=== PATIENT | female | born 1945 | race Caucasian/White ===

== ENCOUNTER → 2016-10-21 | Outpatient (REF) | payer MEDICARE, BC | LOC: M LAB REF 10:45 | PROVIDERS: ATTEND Internal Medicine | DX: N39.0 Urinary tract infection, site not specified (principal) ==

== ENCOUNTER → 2018-12-31 | Outpatient (REF) | payer MEDICARE, BC | LOC: M LAB REF 09:53 | PROVIDERS: ATTEND Physician Assistant | DX: R05 Cough (principal) ==

== ENCOUNTER → 2019-12-21 | Outpatient (CLI) | payer MEDICARE, BC ==
--- NOTE | 2019-12-21 14:03 | REPMRS ---
Patient History The patient states she has not had a clinical breast exam in over a year. Family history of breast cancer at age 50 or over in paternal grandmother. Digital Woman Screen Mammo: December 21, 2019 - Exam #: [id number] Bilateral CC and MLO view(s) were taken. Technologist: Jerri Granger, Technologist Prior study comparison: December 25, 2015, digital woman screen mammo performed at [facility]. September 16, 2014, digital woman screen mammo performed at [facility]. April 16, 2011, digital woman screen mammo performed at [facility]. FINDINGS: There are scattered fibroglandular densities. The Volpara volumetric breast density category is:B. There has been no change in the appearance of the mammogram from the prior studies. There is a mild amount of scattered fibroglandular density which is fairly symmetric. There is no interval development of dominant mass, architectural distortion, or grouped microcalcification suggestive of malignancy. 3-D tomosynthesis shows no additional findings. Assessment: BI-RADS/ACR category 1 mammogram. Negative Mammogram. Recommendation Routine screening mammogram of both breasts in 1 year (for women over age 40). This patient's Lifetime Breast Cancer Risk is estimated at 2.6 %. This mammogram was interpreted with the aid of an FDA-approved computer-aided dectection system. Electronically Signed By: Tushar Thomas MD 12/21/19 0992
== END ==
LOC: M WHC 11:18
PROVIDERS: ATTEND Internal Medicine
DX: Z12.31 Encounter for screening mammogram for malignant neoplasm of breast (principal); Z80.3 Family history of malignant neoplasm of breast

== ENCOUNTER → 2020-05-26 | Outpatient (REF) | payer MEDICARE | LOC: M LAB REF 16:21 | PROVIDERS: ATTEND Family Medicine | DX: N39.0 Urinary tract infection, site not specified (principal) ==

== ENCOUNTER → 2021-05-28 | Outpatient (REF) | payer MEDICARE | LOC: M LAB REF 16:13 | PROVIDERS: ATTEND Internal Medicine | DX: I10 Essential (primary) hypertension (principal) ==

== ENCOUNTER → 2021-07-16 | Outpatient (REF) | payer MEDICARE ==
[2021-07-16 17:39] LABS: APPEARANCE, URINE HAZY (CLEAR); BACTERIA, URINE AUTO NEGATIVE (NEGATIVE); BILIRUBIN, URINE AUTO NEGATIVE (NEGATIVE); BLOOD, URINE BLOOD 1+ (NEGATIVE); COLOR, URINE YELLOW (YELLOW); GLUCOSE, URINE (UA) AUTO 1+ mg/dL (NEGATIVE); KETONE, URINE AUTO NEGATIVE (NEGATIVE); LEUKOCYTE ESTERASE, URINE AUTO TRACE (NEGATIVE); NITRITE, URINE AUTO NEGATIVE (NEGATIVE); PROTEIN, URINE AUTO NEGATIVE (NEGATIVE); RBC, URINE AUTO 1 /HPF (0-3); SQUAMOUS EPITHELIAL CELL UR AU 1 /HPF (0-6); UROBILINOGEN, URINE AUTO 0.2 mg/dL (0.0-2.0); WBC, URINE AUTO 5 /HPF (0-3)
== END ==
LOC: M SMT 16:39
PROVIDERS: ATTEND Nurse Practitioner Women's Health
DX: N39.0 Urinary tract infection, site not specified (principal)

== ENCOUNTER → 2021-07-27 | Outpatient (CLI) | payer MEDICARE ==
[2021-07-27 17:09] LABS: BLOOD UREA NITROGEN 21 MG/DL (7-18); CARBON DIOXIDE LEVEL 25 MEQ/L (21-32); CHLORIDE LEVEL 101 MEQ/L (98-107); CREATININE FOR GFR 0.87 MG/DL (0.55-1.30); GLOMERULAR FILTRATION RATE > 60.0 (>39); GLUCOSE, FASTING 153 MG/DL (70-100); POTASSIUM SERUM 4.4 MEQ/L (3.5-5.1); SODIUM LEVEL 135 MEQ/L (136-145)
== END ==
LOC: M PLALAB 15:46
PROVIDERS: ATTEND Specialist
DX: N39.0 Urinary tract infection, site not specified (principal)

== ENCOUNTER → 2021-08-04 | Outpatient (CLI) | payer MEDICARE ==
[~2021-08-04] MED LIST: ISOVUE-370 76% 100ML VIAL As Ordered ONE
== END ==
LOC: M RAD 11:59
PROVIDERS: ATTEND Specialist
DX: N39.0 Urinary tract infection, site not specified (principal)
CPT/HCPCS: 74178; Q9967

== ENCOUNTER → 2021-08-28 | Outpatient (CLI) | payer MEDICARE ==
[~2021-08-28] MED LIST changes: +AMLO1TAB24; +BD I; +INSUNSD; +INSURSD; -ISOVUE-370 76% 100ML VIAL As Ordered ONE; +METO1TAB32; +OLME20TA2; +PRAV10TA4; +PREDOPD; +SPIR-10
[2021-08-28 18:30] LABS: HEMATOCRIT 35.2 % (36.0-47.0); HEMOGLOBIN 11.8 g/dl (12.0-15.5); MEAN CORPUSCULAR HEMOGLOBIN 30.6 pg (27.0-33.0); MEAN CORPUSCULAR HGB CONC 33.5 g/dl (32.0-36.5); MEAN CORPUSCULAR VOLUME 91.2 fl (80.0-96.0); PLATELET COUNT, AUTOMATED 272 10^3/uL (150-450); RED BLOOD COUNT 3.86 10^6/uL (4.00-5.40)
[2021-08-28 18:52] LABS: PARTIAL THROMBOPLASTIN TIME 29.7 SECONDS (25.9-37.0)
[2021-08-28 18:59] LABS: INR 1.02; PROTHROMBIN TIME 13.8 SECONDS (12.7-14.5)
[2021-08-28 19:00] LABS: BLOOD UREA NITROGEN 21 MG/DL (7-18); CALCIUM LEVEL 9.2 MG/DL (8.8-10.2); CARBON DIOXIDE LEVEL 29 MEQ/L (21-32); CHLORIDE LEVEL 103 MEQ/L (98-107); CREATININE FOR GFR 0.88 MG/DL (0.55-1.30); GLOMERULAR FILTRATION RATE > 60.0 (>39); GLUCOSE, FASTING 263 MG/DL (70-100); POTASSIUM SERUM 4.6 MEQ/L (3.5-5.1); SODIUM LEVEL 135 MEQ/L (136-145)
== END ==
LOC: M PLALAB 14:33
PROVIDERS: ATTEND Nurse Practitioner Women's Health
DX: Z01.818 Encounter for other preprocedural examination (principal); N32.89 Other specified disorders of bladder

== ENCOUNTER → 2021-08-31 | Outpatient (REF) | payer MEDICARE ==
[2021-08-31 18:05] LABS: APPEARANCE, URINE HAZY (CLEAR); BACTERIA, URINE AUTO 2+ (NEGATIVE); BILIRUBIN, URINE AUTO NEGATIVE (NEGATIVE); BLOOD, URINE BLOOD NEGATIVE (NEGATIVE); COLOR, URINE YELLOW (YELLOW); GLUCOSE, URINE (UA) AUTO 2+ mg/dL (NEGATIVE); KETONE, URINE AUTO NEGATIVE (NEGATIVE); LEUKOCYTE ESTERASE, URINE AUTO 1+ (NEGATIVE); NITRITE, URINE AUTO NEGATIVE (NEGATIVE); PROTEIN, URINE AUTO NEGATIVE (NEGATIVE); RBC, URINE AUTO 1 /HPF (0-3); SPECIFIC GRAVITY URINE AUTO 1.009 (1.002-1.035); SQUAMOUS EPITHELIAL CELL UR AU 1 /HPF (0-6); UROBILINOGEN, URINE AUTO 0.2 mg/dL (0.0-2.0); WBC, URINE AUTO 19 /HPF (0-3)
== END ==
LOC: M SMT 16:49
PROVIDERS: ATTEND Nurse Practitioner Women's Health
DX: Z01.818 Encounter for other preprocedural examination (principal); N32.89 Other specified disorders of bladder

== ENCOUNTER → 2021-09-02 | Outpatient (CLI) | payer MEDICARE | LOC: M LABSMTC 09:52 | PROVIDERS: ATTEND Anesthesiology | DX: Z01.812 Encounter for preprocedural laboratory examination (principal); Z20.822 Contact with and (suspected) exposure to COVID-19 ==

== ENCOUNTER 2021-09-07 07:38 | Day surgery (SDC) | payer MEDICARE ==
[~2021-09-07] VITALS: Ht 157.5 cm; Wt 53.6 kg
[~2021-09-07 07:38] MED LIST changes: +ceFAZolin SOD 2 GM in IV 1 EA IV ONE
[2021-09-07] MEDS ORDERED: LR 1,000 ML IV SCH ×2 (07:45→10:05)
[2021-09-07] MEDS ORDERED: CIPR-249 PO (08:00)
[2021-09-07] MEDS ORDERED: dexameTHASONE 4 MG/ML 1ML VIAL (J1100 PER 1MG) As Ordered ONE (08:59)
[2021-09-07] MEDS ORDERED: ONDANSETRON 4MG 2ML VIAL As Ordered ONE ×2 (08:59→12:34)
[2021-09-07] MEDS ORDERED: propofoL 200 MG/20 ML VIAL As Ordered ONE (08:59)
[2021-09-07] MEDS ORDERED: LIDOCAINE 2% 100MG/5ML SDV (FOR ANES.) As Ordered ONE (08:59)
[2021-09-07] MEDS ORDERED: ROCURONIUM BROMIDE 50 MG/5 ML VIAL As Ordered ONE (08:59)
[2021-09-07] MEDS ORDERED: fentaNYL 250 MCG/5 ML INJECTION As Ordered ONE (09:00)
[2021-09-07] MEDS ORDERED: MIDAZOLAM INJ 2MG/2ML VIAL (J2250 PER 1MG) As Ordered ONE (09:00)
[2021-09-07] MEDS ORDERED: SEVOFLURANE INHAL SOLN 250 ML BTL As Ordered ONE (09:08)
[2021-09-07] MEDS ORDERED: LACRILUBE (AKWA TEARS) OPHTH OINT 3.5 GM As Ordered ONE (09:36)
[2021-09-07] MEDS ORDERED: ePHEDrine SULFATE 25 MG/5 ML(5MG/ML) SYRINGE As Ordered ONE (09:48)
[2021-09-07] MEDS ORDERED: ACETAMINOPHEN 1000MG 100ML IV BTL (OFIRMEV) (J0131 PER 10MG) As Ordered ONE (09:58)
[2021-09-07] MEDS ORDERED: SUGAMMADEX SODIUM 500 MG/5 ML VIAL (BRIDION) As Ordered ONE (10:00)
[2021-09-07] MEDS ORDERED: fentaNYL 100 MCG/2 ML INJECTION IV PRN (10:05)
[2021-09-07] MEDS ORDERED: ONDANSETRON 4MG 2ML VIAL IV PRN ×2 (10:05→12:35)
[2021-09-07] MEDS ORDERED: PERCOCET 5MG/325MG TAB PO PRN (10:05)
[2021-09-07] MEDS ORDERED: MEPERIDINE INJ 25 MG/ML VIAL (J2175) IV PRN (10:05)
[2021-09-07] MEDS ORDERED: MORPHINE 2 MG/ML 1ML VIAL IV PRN (10:05)
[2021-09-07 12:40] VITALS: BP 155/67
== END 2021-09-07 12:49 | disposition home or self-care (01) ==
LOC: M SDC 07:38
PROVIDERS: ATTEND Urology
DX: N32.9 Bladder disorder, unspecified (principal); I10 Essential (primary) hypertension; E10.9 Type 1 diabetes mellitus without complications; E78.5 Hyperlipidemia, unspecified; Z79.4 Long term (current) use of insulin; Z79.899 Other long term (current) drug therapy; Z79.82 Long term (current) use of aspirin
CPT/HCPCS: 52204; 88305; J0131; J0690; J1100; J2250; J2405; J3010

== ENCOUNTER → 2022-11-30 | Outpatient (REF) | payer MEDICARE ==
[~2022-11-30] MED LIST changes: +CIPR-249 PO; -ceFAZolin SOD 2 GM in IV 1 EA IV ONE
== END ==
LOC: M LAB REF 16:36
PROVIDERS: ATTEND Nurse Practitioner Family
DX: R30.0 Dysuria (principal)

== ENCOUNTER → 2023-03-08 | Outpatient (REF) | payer MEDICARE ==
[~2023-03-08] MED LIST changes: +INSU100V19; -INSURSD; -OLME20TA2; +OLME20TA50
== END ==
LOC: M LAB REF 13:23
PROVIDERS: ATTEND Nurse Practitioner Family
DX: R19.7 Diarrhea, unspecified (principal)

== ENCOUNTER → 2023-03-10 | Outpatient (REF) | payer MEDICARE ==
[2023-03-10 20:03] LABS: RSV AMPLIFICATION NEGATIVE (NEGATIVE)
== END ==
LOC: M LAB REF 16:11
PROVIDERS: ATTEND Nurse Practitioner Family
DX: R06.02 Shortness of breath (principal)

== ENCOUNTER → 2023-03-23 | Outpatient (CLI) | payer MEDICARE | LOC: M PLAIMG 11:34 | PROVIDERS: ATTEND Nurse Practitioner Family | DX: R06.02 Shortness of breath (principal) ==

== ENCOUNTER → 2023-05-02 | Outpatient (REF) | payer MEDICARE | LOC: M LAB REF 17:08 | PROVIDERS: ATTEND Internal Medicine | DX: N39.0 Urinary tract infection, site not specified (principal); B96.89 Other specified bacterial agents as the cause of diseases classified elsewhere ==

== ENCOUNTER → 2023-09-21 | Day surgery (SDC) | payer MEDICARE ==
[~2023-09-21] VITALS: Ht 157.5 cm; Wt 50.6 kg
[~2023-09-21] MED LIST changes: +INSULADS INJ; +LIDOCAINE 2% 100MG/5ML SDV (FOR ANES.) As Ordered ONE; -OLME20TA50; +OLME20TA50 PO; -PRAV10TA4; +PRAV10TA4 PO; -SPIR-10; +SPIR-10 PO; +fentaNYL 100 MCG/2 ML INJECTION As Ordered ONE; +propofoL 500 MG/50 ML VIAL As Ordered ONE
[2023-09-21] MEDS: NS 1,000 ML IV ONE (07:16)
[2023-09-21 08:35] VITALS: BP 193/81; O2SAT 98
== END | disposition home or self-care (01) ==
LOC: M OPP 06:44
PROVIDERS: ATTEND Internal Medicine Gastroenterology
DX: Z12.11 Encounter for screening for malignant neoplasm of colon (principal); Z83.719 Family history of colon polyps, unspecified; D12.2 Benign neoplasm of ascending colon; K63.5 Polyp of colon; K64.0 First degree hemorrhoids; K57.30 Diverticulosis of large intestine without perforation or abscess without bleeding; K44.9 Diaphragmatic hernia without obstruction or gangrene; K31.89 Other diseases of stomach and duodenum; K22.89 Other specified disease of esophagus; R12 Heartburn; R10.816 Epigastric abdominal tenderness; E11.9 Type 2 diabetes mellitus without complications; Z79.02 Long term (current) use of antithrombotics/antiplatelets; Z79.899 Other long term (current) drug therapy
CPT/HCPCS: 43239; 45380; 45385; 88305; J3010

== ENCOUNTER → 2023-11-29 | Outpatient (CLI) | payer MEDICARE ==
[~2023-11-29] MED LIST changes: -LIDOCAINE 2% 100MG/5ML SDV (FOR ANES.) As Ordered ONE; -fentaNYL 100 MCG/2 ML INJECTION As Ordered ONE; -propofoL 500 MG/50 ML VIAL As Ordered ONE
== END ==
LOC: M WHC 11:37
PROVIDERS: ATTEND Internal Medicine
DX: Z12.31 Encounter for screening mammogram for malignant neoplasm of breast (principal); R92.323 Mammographic fibroglandular density, bilateral breasts

== ENCOUNTER 2024-01-02 06:59 | Day surgery (SDC) | payer MEDICARE ==
[~2024-01-02] VITALS: Ht 157.5 cm; Wt 51.4 kg
[~2024-01-02 06:59] MED LIST changes: +AMLO1TAB24 PO; +OMEP-173 PO; +PRAV10TA3 PO
[2024-01-02] MEDS ORDERED: propofoL 200 MG/20 ML VIAL As Ordered ONE (07:58)
[2024-01-02] MEDS ORDERED: LIDOCAINE 2% 100MG/5ML SDV (FOR ANES.) As Ordered ONE (07:58)
[2024-01-02 09:09] VITALS: TEMP 98.3
[2024-01-02 09:24] VITALS: BP 127/59; O2SAT 93
== END 2024-01-02 09:35 | disposition home or self-care (01) ==
LOC: M OPP 06:59
PROVIDERS: ATTEND Internal Medicine Gastroenterology
DX: K62.0 Anal polyp (principal); Z86.0100 Personal history of colon polyps, unspecified; K62.89 Other specified diseases of anus and rectum; I10 Essential (primary) hypertension; E78.5 Hyperlipidemia, unspecified; E10.9 Type 1 diabetes mellitus without complications; Z79.4 Long term (current) use of insulin; Z79.899 Other long term (current) drug therapy

== ENCOUNTER → 2024-02-13 | Outpatient (REF) | payer MEDICARE | LOC: M LAB REF 16:26 | PROVIDERS: ATTEND Internal Medicine | DX: N39.0 Urinary tract infection, site not specified (principal) ==

== ENCOUNTER → 2024-02-25 | Outpatient (REF) | payer MEDICARE | LOC: M LAB REF 17:26 | PROVIDERS: ATTEND Physician Assistant Medical | DX: N39.0 Urinary tract infection, site not specified (principal) ==

== ENCOUNTER → 2024-03-31 | Outpatient (REF) | payer MEDICARE | LOC: M WUC 17:04 | PROVIDERS: ATTEND Physician Assistant Medical | DX: N39.0 Urinary tract infection, site not specified (principal) ==

== ENCOUNTER → 2024-06-27 | Outpatient (REF) | payer MEDICARE | LOC: M LAB REF 14:40 | PROVIDERS: ATTEND Student in an Organized Health Care Education/Training Program | DX: R30.0 Dysuria (principal) ==

== ENCOUNTER → 2024-08-27 | Outpatient (CLI) | payer MEDICARE ==
[~2024-08-27] MED LIST changes: +ISOVUE-370 76% 100 ML VIAL As Ordered ONE; +PRAV10TA PO; -PRAV10TA3 PO; -PRAV10TA4 PO; +PRAV10TA43 PO
== END ==
LOC: M RAD 09:07
PROVIDERS: ATTEND Internal Medicine
DX: R10.2 Pelvic and perineal pain (principal); I65.22 Occlusion and stenosis of left carotid artery
CPT/HCPCS: 74177; 93880; Q9967

== ENCOUNTER → 2024-09-17 | Outpatient (REF) | payer MEDICARE ==
[~2024-09-17] MED LIST changes: -ISOVUE-370 76% 100 ML VIAL As Ordered ONE
== END ==
LOC: M LAB REF 14:12
PROVIDERS: ATTEND Student in an Organized Health Care Education/Training Program
DX: R30.0 Dysuria (principal)

== ENCOUNTER → 2024-10-26 | Outpatient (REF) | payer MEDICARE | LOC: M LAB REF 14:44 | PROVIDERS: ATTEND Student in an Organized Health Care Education/Training Program | DX: R30.0 Dysuria (principal) ==

== ENCOUNTER → 2024-11-09 | Outpatient (CLI) | payer MEDICARE | LOC: M PLAIMG 08:22 | PROVIDERS: ATTEND Internal Medicine | DX: I35.0 Nonrheumatic aortic (valve) stenosis (principal) ==

== ENCOUNTER → 2024-12-05 | Outpatient (REF) | payer MEDICARE | LOC: M LAB REF 14:16 | PROVIDERS: ATTEND Physician Assistant | DX: R30.0 Dysuria (principal) ==

== ENCOUNTER → 2024-12-13 | Outpatient (CLI) | payer MEDICARE | LOC: M WHC 14:32 | PROVIDERS: ATTEND Internal Medicine | DX: Z12.31 Encounter for screening mammogram for malignant neoplasm of breast (principal) ==

== ENCOUNTER → 2025-01-17 | Outpatient (REF) | payer MEDICARE ==
[~2025-01-17] MED LIST changes: -INSU100V19; +INSURSDRX
== END ==
LOC: M LAB REF 13:41
PROVIDERS: ATTEND Student in an Organized Health Care Education/Training Program
DX: R30.0 Dysuria (principal)

== ENCOUNTER → 2025-01-24 | Outpatient (REF) | payer MEDICARE | LOC: M LAB REF 13:56 | DX: R30.0 Dysuria (principal) ==

== ENCOUNTER → 2025-02-04 | Outpatient (REF) | payer MEDICARE ==
[2025-02-04 18:38] LABS: APPEARANCE, URINE CLOUDY (CLEAR); BACTERIA, URINE AUTO 1+ (NEGATIVE); BILIRUBIN, URINE AUTO NEGATIVE (NEGATIVE); BLOOD, URINE BLOOD NEGATIVE (NEGATIVE); GLUCOSE, URINE (UA) AUTO NEGATIVE (NEGATIVE); KETONE, URINE AUTO NEGATIVE (NEGATIVE); LEUKOCYTE ESTERASE, URINE AUTO 3+ (NEGATIVE); NITRITE, URINE AUTO NEGATIVE (NEGATIVE); PROTEIN, URINE AUTO NEGATIVE (NEGATIVE); RBC, URINE AUTO 2 /HPF (0-3); SPECIFIC GRAVITY URINE AUTO 1.011 (1.002-1.035); SQUAMOUS EPITHELIAL CELL UR AU 0 /HPF (0-6); UROBILINOGEN, URINE AUTO 0.2 mg/dL (0.0-2.0); WBC, URINE AUTO TNTC /HPF (0-3)
== END ==
LOC: M LAB REF 16:59
PROVIDERS: ATTEND Internal Medicine
DX: Z01.818 Encounter for other preprocedural examination (principal); R30.0 Dysuria